=== PATIENT | male | born 1960 | race Caucasian/White ===

== ENCOUNTER 2022-07-29 13:56 | Emergency (ER) | payer OTHER, SELFPAY ==
[2022-07-29 13:57] VITALS: BP 127/90; PULSE 101; RESP 18; TEMP 36.2; O2SAT 98
--- NOTE | 2022-07-29 13:58 | ED.MEDCLEAR ---
HPI - Medical Clearance General Chief complaint: Psychiatric Symptoms Stated complaint: mental evaluation Time Seen by Provider: 07/29/22 13:58 Source: patient and police Mode of arrival: ambulatory Limitations: no limitations History of Present Illness HPI Narrative: Patient was at his housing unit and talking with the coordinator. Apparently they told him that his times running out and he would not be able to stay there anymore. Out of frustration anger he said if I had a gun I would just blow my brains out. Therefore police were called and patient was brought in for evaluation of suicidal ideations. On arrival he denies that he would never harm self. I explained to him that we would need to do an evaluation for medical clearance so that he would be able to go back to the housing unit. complaint: medical clearance requested Onset (ago): hour(s) (1) Reason for Medical Clearance: psychiatric condition Place: home Alleged Intoxication: No Compliant with Home Medications: Yes Traumatic Symptoms: denies traumatic injury Associated Symptoms: denies other symptoms Treatments Prior to Arrival: none Related Information Home Medications Medication Instructions Recorded Confirmed alprazolam 2 mg tablet 2 mg PO PRN PRN Anxiety 07/29/22 07/29/22 carbidopa 25 mg-levodopa 250 mg 1 tablet PO DAILY 07/29/22 07/29/22 tablet finasteride 5 mg tablet 5 mg PO DAILY 07/29/22 07/29/22 gabapentin 300 mg capsule 300 mg PO TID 07/29/22 07/29/22 oxycodone 10 mg tablet 10 mg PO PRN PRN Pain 07/29/22 07/29/22 Allergies Allergy/AdvReac Type Severity Reaction Status Date / Time acetaminophen [From Tylenol] Allergy Unknown Verified 07/29/22 14:12 Review of Systems Review of Systems: All systems reviewed & are unremarkable except as noted in HPI and below PMFSH Past Medical History Medical History (Updated 07/29/22 @ 15:24 by Hayes Mcintyre MD) Anxiety Surgical History Surgical History (Updated 07/29/22 @ 14:13 by Hayes Mcintyre MD) H/O shoulder surgery bilateral History of knee replacement bilateral Social History Social History (Updated 07/29/22 @ 14:47 by Hayes Mcintyre MD) Smoking status: Never smoker Alcohol intake: never Substance use: current Substance use type: marijuana Exam Const: General: healthy appearing, no acute distress and alert Nutritional Appearance: well nourished Orientation/consciousness: patient oriented x3 Limitations: no limitations HENMT: Head: normal to inspection Ears: external ears normal Face/Nose/Sinus: Normal external nose present Face and sinus: normal facial exam Mouth: Yes moist mucous membranes abnormal Eyes: Conjunctivae: conjunctivae normal Pupils: Equal, round and reactive pupils present EOM: EOMs intact bilaterally Neck: Neck: normal visual inspection Resp: Effort & Inspection: normal respiratory effort Auscultation: clear to auscultation bilaterally Cardio: Rate: regular rate Rhythm: regular rhythm GI: GI Palp: Yes Soft to palpation and No Tenderness to palpation present (GI) Auscultation: normal bowel sounds Back/Spine/Pelvis: Cervical Spine: cervical ROM normal Thoracic/Lumbar Spine: thoraco-lumbar ROM normal Skin: General skin exam: normal color Rashes: no rashes Neuro: General: patient oriented x3, moves all extremities, no focal motor deficits and CN's II-XI intact bilaterally Speech: normal speech Gait exam (Neuro): Normal gait present ( Walks with a cane) Extrem: General: normal to inspection and no clubbing, cyanosis or edema Psych: Mental Status: mental status grossly normal Affect: normal affect Attitude: cooperative Course Course Emergency Course: Nurse spoke with [facility] on the phone and a safety plan was agreed upon the patient will be discharged home for follow-up as an outpatient. MDM - Medical Clearance MDM Narrative Medical decision making narrative: differential diagnosis: Depression, suicidal i
[2022-07-29 14:14] LABS: Basophils Absolute Auto 0.05 K/mm3 (0.00-0.10); Basophils Percent Auto 0.8 % (0.0-1.0); Eosinophils Absolute Auto 0.17 K/mm3 (0.02-0.50); Eosinophils Percent Auto 2.6 % (1.0-6.0); Hematocrit 35.2 % (40.0-54.0); Hemoglobin 10.9 g/dL (14.0-18.0); Immature Granulocyte Absolute 0.02 K/mm3 (0.00-0.00); Immature Granulocyte Percent A 0.3 % (0.0-0.0); Lymphocytes Absolute Auto 1.79 K/mm3 (1.10-4.50); Mean Platelet Volume 10.2 fl (8.7-11.0); Monocytes Absolute Auto 0.47 K/mm3 (0.10-0.90); Monocytes Percent Auto 7.1 % (2.0-11.0); Neutrophils Absolute Auto 4.1 K/mm3 (1.7-7.2); Neutrophils Percent Auto 62.2 % (50.0-70.0); Platelet Count Result 202 K/mm3 (150-420); Red Blood Count 4.19 M/mm3 (4.70-6.10); Red Cell Distribution Width 17.9 % (11.6-14.4); White Blood Count 6.6 K/mm3 (4.8-10.8)
--- NOTE | 2022-07-29 14:23 | PC.NURSE ---
Pt eating sandwich, joking c staff and states he really wants to go home because he has workers coming and reports Please I'm not a harm to anyone or myself . Explained POC for awaiting test results and that Dr would like for pt to speak c counselor. Pt worried about how he is going to get a ride to get him home and wanting to speak c a social insurance analyst if possible. Call placed to urgent care physician assistant Estefania to try to come and evaluate and speak c pt.
[2022-07-29 14:27] LABS: Amphetamine Screen Urine Negative (Negative); Barbiturate Screen Urine Negative (Negative); Benzodiazepines Screen Urine Positive (Negative); Cannabinoid Screen Urine Positive (Negative); Cocaine Screen Urine Negative (Negative); Methadone Screen Urine Negative (Negative); Opiate Screen Urine Negative (Negative); Phencyclidine Screen Urine Negative (Negative)
[2022-07-29 14:39] LABS: Acetaminophen < 2 ug/mL (10-30); Alanine Aminotransferase 28 U/L (16-63); Albumin Level 3.5 g/dL (3.4-5.0); Alkaline Phosphatase 86 U/L (46-116); Anion Gap 7 mmol/L (8-16); Aspartate Amino Transferase 24 U/L (15-37); Bilirubin,Total 0.2 mg/dL (0.00-1.00); Blood Urea Nitrogen 9 mg/dL (7-18); Calcium 8.2 mg/dL (8.5-10.1); Carbon Dioxide 26 mmol/L (21-32); Chloride 104 mmol/L (98-108); Estimated CRCL calculation 83 ml/min; Estimated Glomerular Filt Rate > 60; Ethanol 81 mg/dL (0-6); Glucose 83 mg/dL (70-99); Osmolality Calculated 281 mOsm/kg (285-295); Potassium 3.6 mmol/L (3.5-5.1); Salicylate 2.1 mg/dL (2.8-20.0); Sodium 137 mmol/L (136-145); Thyroid Stimulating Hormone 0.42 uIU/mL (0.36-3.74); Total Protein 6.9 g/dL (6.4-8.2)
--- NOTE | 2022-07-29 14:52 | PCCCNOTE ---
Was called to ED room 2 to talk with Chan about housing and transportation resources. Gave pt resources for both. Pt states he is aware of the housing listed and he is aware how to contact [facility] for rides. Pt will need ride home from the ED once cleared by Shama Jewell for not being a threat to himself or others.
[2022-07-29 15:34] VITALS: BP 124/74; PULSE 87; RESP 20; TEMP 36.6; O2SAT 99
--- NOTE | 2022-07-29 15:41 | PCCCNOTE ---
[facility]T unable to transport pt room ED to another [facility]. Spoke with Kristin at [facility] [phone] and ticket started for ride home. They will try to pick pt up around 4:30pm. Gave Kristin ED phone number [phone] to communicate with. ED RN to call Me[facility] if they have not called back in 30-45 min. Gave this information to Daria RN in ED.
== END 2022-07-29 15:35 | disposition home or self-care (01) ==
PROVIDERS: Emergency Provider Emergency Medicine; PCP Family Medicine
DX: F41.9 Anxiety disorder, unspecified (principal)
CPT/HCPCS: 36415; 80053; 80307; 84443; 85025; 99284

== ENCOUNTER 2023-01-05 11:16 | Emergency (ER) | payer OTHER, SELFPAY ==
--- NOTE | ~2023-01-05 | XR_ITS ---
EXAMINATION: XR ankle RT min 3V DATE: 01/05/2023 12:05 INDICATION: Right ankle pain TECHNIQUE: Anteroposterior, oblique, mortise, and lateral views of the right ankle were obtained. COMPARISON: None. FINDINGS: Diffuse osteopenia. Chronic posttraumatic and postoperative change at the right ankle. Lucent tracts for prior plain screw fixation along the distal fibula. Small round lucency at the posterior tuberosi ty of the calcaneus which represent additional screw tract or tract for prior external fixation. Old healed fracture deformities at the lateral malleolus and posterior malleolus. 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 Additional old healed fracture deformity at the distal d iaphysis of the fifth metatarsal. No acute fractures identified. 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 Additional mild osteoarthritis at the subtalar and a few of the tarsal metatarsal joints. IMPRESSION: 1. 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 2. Additional mild polyarticular osteoarthritis at the subtalar and a few tarsal metatarsal joints. 3. Diffuse osteopenia. Reviewed, dictated and finalized at location A. IMPRESSION: 1. Chronic posttraumatic and postoperative changes at the right ankle with resi dual chronic nonunited medial malleolar fracture and advanced secondary osteoar thritis at the ankle joint. 2. Additional mild polyarticular osteoarthritis at the subtalar and a few tarsa l metatarsal joints. 3. Diffuse osteopenia.
[2023-01-05 11:36] VITALS: BP 126/74; PULSE 69; RESP 16; TEMP 37.1; O2SAT 99
--- NOTE | 2023-01-05 13:48 | PC.NURSE ---
PT CAME UP TO DESK AND STATED I CAN'T WAIT ANY LONGER. I NEED TO LEAVE TO GO TO THE AIRPORT PT WAS AMBULATORY FROM DEPARTMENT WITH A STEADY GAIT WITH CANE ASSIST.
== END 2023-01-05 13:48 | disposition left against medical advice (07) ==
PROVIDERS: Emergency Provider Preventive Medicine Aerospace Medicine; PCP Family Medicine
DX: M25.571 Pain in right ankle and joints of right foot (principal)
CPT/HCPCS: 73610; 99199